=== PATIENT | female | born 1965 | race African-American/Black ===

== ENCOUNTER 2019-11-02 18:05 | Emergency (ER) | payer MEDICAID ==
[~2019-11-02] VITALS: Ht 165.1 cm; Wt 68.0 kg
[2019-11-02 18:11] VITALS: BP 121/73
--- NOTE | 2019-11-02 18:24 | NUR ---
PT BIBA BLS IN THE CAR C/O OF LLQ PAIN , 03/13 , DENIES N/V , DRUNK VODKA.PT AWAKE , ALERT, AFIBRILE , AMBULATORY WITH STEADY GAIT , SCE , CBS, ROUND SOFT NABS , NONTENDER. PMHS HTN TAKING ANTI HTN MEDS.
--- NOTE | 2019-11-02 18:54 | NUR ---
pt states wants information not to be release to people asking for her condition.charge nurse phillip informed and aware.
--- NOTE | 2019-11-02 19:09 | NUR ---
report given to jean mckenna . pt awake , alert ,comfortable in bed , side rails up x1 and lock.
--- NOTE | 2019-11-02 19:22 | NUR ---
pt [id number], talking on cell Addendum: 11/02/19 at 1922 by [facility]OL pt aaox4 talking on cell phone, sitting up in [facility]. no s/s of acute distress @ this time. will continue to observe.
--- NOTE | 2019-11-02 20:15 | NUR ---
PT C/O CP 12/11 SUBSTERNAL @ THIS TIME, SKIN PINK WARM TO TOUCH HR 98 ON MONITOR 100 RA. WILL UPDATE ERMD.
--- NOTE | 2019-11-02 20:35 | NUR ---
DR HARRISON @ BESIDE EXAMINING PT
[2019-11-02] MEDS ORDERED: KETOROLAC 60 MG/2 ML VIAL IM ONE (20:55)
[2019-11-02] MEDS ORDERED: ASPIRIN 81 MG TAB.CHEW PO ONE (20:55)
--- NOTE | 2019-11-02 20:58 | NUR ---
X-Ray at bedside.
--- NOTE | 2019-11-02 21:11 | NUR ---
EKG PERFORMED AT BEDSIDE
--- NOTE | 2019-11-02 21:30 | NUR ---
PT CALM EYES CLOSED, AROUSABLE, LAYING IN GURNEY, NO S/S OF ACUTE DISTRESS NOTED. DENIES PAIN @ THIS TIME.
[2019-11-02 22:30] VITALS: BP 112/69
== END 2019-11-02 22:30 | disposition home or self-care (01) ==
LOC: MED 18:05
DX: R07.89 Other chest pain (principal); I10 Essential (primary) hypertension; M54.9 Dorsalgia, unspecified
CPT/HCPCS: 71045; 93005; 96372; 99283; J1885; Q0092